=== PATIENT | female | born 1935 | race Caucasian/White ===

== ENCOUNTER 2019-07-04 21:05 | Emergency (ER) | payer OTHER ==
[~2019-07-04] VITALS: Ht 157.5 cm; Wt 63.5 kg
[2019-07-04 21:21] LABS: INFLUENZA A ANTIGEN Negative (Negative)
[2019-07-04] MEDS ORDERED: TAMIFLU75 MG PO (21:31)
[2019-07-04] MEDS ORDERED: TESSALON PERLE100 MG PO (22:02)
[2019-07-04 22:11] VITALS: BP 171/78
== END 2019-07-04 22:18 | disposition home or self-care (01) ==
LOC: M.ERS 21:05
PROVIDERS: Physician Assistant
DX: J10.1 Influenza due to other identified influenza virus with other respiratory manifestations (principal); E03.9 Hypothyroidism, unspecified

== ENCOUNTER 2020-06-27 12:24 | Emergency (ER) | payer OTHER ==
[~2020-06-27] VITALS: Ht 157.5 cm; Wt 63.5 kg
[~2020-06-27 12:24] MED LIST: TAMIFLU75 MG PO; TESSALON PERLE100 MG PO
[2020-06-27] MEDS ORDERED: [UNRECOGNIZED DRUG - OTHER] (12:50)
[2020-06-27] MEDS ORDERED: FAMOTIDINE 20 M20 MG PO (13:25)
[2020-06-27] MEDS ORDERED: DOXYCYCLINE 10100 MG PO (13:25)
[2020-06-27 13:34] VITALS: BP 193/82
== END 2020-06-27 13:38 | disposition home or self-care (01) ==
LOC: M.ERS 12:24
DX: L53.9 Erythematous condition, unspecified (principal); T37.0X5A Adverse effect of sulfonamides, initial encounter; E03.9 Hypothyroidism, unspecified; I10 Essential (primary) hypertension; Z90.710 Acquired absence of both cervix and uterus; Z96.641 Presence of right artificial hip joint; Z85.42 Personal history of malignant neoplasm of other parts of uterus; Z88.2 Allergy status to sulfonamides; Z88.8 Allergy status to other drugs, medicaments and biological substances; Y92.89 Other specified places as the place of occurrence of the external cause